=== PATIENT | male | born 1970 | race Caucasian/White ===

== ENCOUNTER 2019-02-12 20:13 | Inpatient (IN) ==
[~2019-02-12 20:13] MED LIST: HEPARIN (PORCINE) 1000 UNIT/ML 10 ML (CATH LAB USE ONLY) ONE; MIDAZOLAM HCL 1 MG/ML 2ML VIAL ONE; NITROGLYCERIN/D5W 100MCG/ML 20ML SYR ONE; NiCARDipine HCL INJ 2.5 MG/ML 10 ML AMP ONE; fentaNYL citrate 100 MCG/2 ML VIAL ONE
[2019-02-12] MEDS ORDERED: SODIUM CHLORIDE 0.9% 1000ML 1,000 ML IV ONE (20:18)
[2019-02-12] MEDS ORDERED: HEPARIN SOD (PORCINE) 1000 UNIT/ML 10 ML VIAL ONE (20:24)
--- NOTE | 2019-02-12 20:34 | XRay Report ---
XR chest 1V portable CLINICAL HISTORY: Chest Pain dyspnea COMPARISON STUDY: No previous studies for comparison. FINDINGS: Mild cardiomegaly. Minimal infiltrative change right base possibly combined with a small ri ght effusion. Lungs otherwise appear clear. Slight prominence of pulmonary vasculature. IMPRESSION: Atelectasis versus minimal infiltrate right base. Pulmonary vascular congestion. The above report was generated using voice recognition software. It may contain grammatical, syntax or spelling errors. Electronically signed by: Ezra Cisse M.D. 02/12/2019 8:33 PM
[2019-02-12 20:38] LABS: Basophils # (auto) 0.03 K/uL (0-0.2); Basophils % (auto) 0.3 %; Eosinophils # (auto) 0.21 K/uL (0-0.5); Eosinophils % (auto) 2.3 %; Hematocrit (blood only) 34.1 % (42-52); Immature Granulocytes # (auto) 0.03 K/uL (0.00-0.02); Immature Granulocytes % (auto) 0.3 %; Lymphocytes % (auto) 27.3 %; Mean Corpuscular Hgb Conc 35.2 g/dL (32-36); Mean Platelet Volume 8.9 fL (7.4-10.4); Monocytes # (auto) 0.64 K/uL (0.11-0.59); Neutrophils # (auto) 5.76 K/uL (1.4-6.5); Neutrophils % (auto) 62.8 %; Platelet Count 220 K/uL (130-400); RDW Coefficient of Variation 13.2 % (11.5-14.5); RDW Standard Deviation 40.9 fL (36.4-46.3); Red Blood Count 4.01 M/uL (4.7-6.1); White Blood Count 9.17 K/uL (4.8-10.8)
[2019-02-12 20:55] LABS: Albumin Level 3.2 gm/dl (3.4-5.0); BUN Creatinine Ratio 13.7 (10-20); Creatinine Clr Calc Pharmacy 92.6 ml/min; Est GFR (African American) 80.4; Est GFR (Non-African American) 69.4
[2019-02-12 21:00] LABS: iSTAT Creatinine 1.1 mg/dl (0.6-1.3); iSTAT Hemoglobin 11.2 g/dl (14.0-18.0); iSTAT Ionized Calcium 1.07 mmol/l (1.12-1.32); iSTAT Potassium 4.1 mEq/L (3.3-5.0)
[2019-02-12 21:05] LABS: Albumin Globulin Ratio 0.8 (0.9-2); Bilirubin,Total 0.3 mg/dl (0.2-1); Creatine Kinase MB 3.8 ng/ml (0.5-3.6); Globulin 4.2 gm/dl (2.5-4.0); Total Protein 7.4 gm/dl (6.4-8.2); Troponin I 4.07 ng/ml (0-0.045)
[2019-02-12] MEDS ORDERED: TICAGRELOR 90 MG TAB PO ONE (21:41)
[2019-02-12] MEDS ORDERED: ONDANSETRON INJ 2 MG/ML 2 ML VIAL IV PRN (21:47)
[2019-02-12] MEDS ORDERED: ACETAMINOPHEN 325 MG TAB PO PRN (21:47)
--- NOTE | 2019-02-12 21:54 | Pre Anesthesia Assessment ---
Date of Service February 12, 2019 Pre Sedation Assessment Vital Signs Pulse Resp BP Pulse Ox 02/12/19 20:20 85 20 165/102 H 99 Cardiovascular RRR, no murmur, no edema Respiratory normal respiratory effort, lungs clear to auscultation Pre-Sedation Airway Assessment Smoking Status: Former smoker Hx Sleep Apnea: No Hx Difficult Intubation: No Short, Thick Neck: No Thyromental Distance: > or= 3.5 Finger Breadths Mallampati Class: III Procedure Planning Contraindications for Sedation: none Current Medications Reviewed: Yes Notes The planned sedation has been discussed with the patient. Informed Consent was obtained. I have identified the patient, determined the appropriateness of sedation and have assessed the patient immediately prior to the procedure. All medicine(s) and interventions are by my order.
--- NOTE | 2019-02-12 21:55 | Post Anesthesia Assessment ---
Date of Service February 12, 2019 Post Sedation Assessment Vital Signs Pulse Resp BP Pulse Ox 02/12/19 20:20 85 20 165/102 H 99 Recovery Score Activity: Moves 4 extremities Respiration: Deep Breath/Cough Circulation: +/-20% PreAnes Value Consciousness: Fully Awake Oxygen Saturation: O2 needed for >90% Discharge Sedation Level of Care: Fast Track Phase II Post Sedation Plan On clinical assessment, the patient appears to have tolerated the sedation without complications. Patient is recovering as anticipated. Patient will continue to be monitored by nursing and may be discharged when sedation discharge criteria are met per below protocol. Upon Completions of procedure and additional 15 minutes continue every 5 minute vital signs and the P.A.R. score; then discharge to a Phase I or Fast Track to Phase II per the following guidelines: * Discharge Patient to appropriate Phase II area if PAR is 8 or greater or return to pre- procedure baseline. The post - procedure orders will be as directed. * If PAR score is less than 8 or not return to pre-procedure baseline then patient will follow Phase I monitoring till PAR is reached for Phase II. The Phase I may be done in procedure room or may call to secure a Phase I area. * If naloxone or flumazenil are used for reversal, hold in Phase I for continued monitoring from when last reversal dose was given for a minimum of 60 minutes or longer pending the nurse and/or physician discretion of patient condition before discharge to Phase II. Please call the Sedation Physician to re-evaluate and complete post-note for discharge to Phase II area. Do NOT discharge from procedure sedation or Phase 1 until post- sedation evaluation note is complete by procedure /sedation MD Sedation Discharge Instructions to be given to the patient at discharge to home.
[2019-02-12] MEDS ORDERED: SODIUM CHLORIDE 0.9% 1000ML 1,000 ML IV SCH (22:00)
--- NOTE | 2019-02-12 22:13 | Cardiac Catheterization ---
Cardiac Cath Procedure Full Procedure Date February 12, 2019 Pre-Procedure Diagnosis Pre-Procedure Diagnosis: Acute Coronary Syndrome AUC Score AUC Score: 8 Post-Procedure Diagnosis Post-Procedure Diagnosis: Severe CAD, Successful PCI and Normal Intracardiac Pressures Procedure(s) Performed Procedure(s) Performed: Coronary Angiography, Left Heart Cath, Drug Eluting Stent and IVUS [facility] Nurse Practitioner Umair Elder MD Granite Fabricator(s) Robbin Estimated Blood Loss Estimated Blood Loss: 15 Medication(s) Medication(s): Fentanyl, Heparin, Lidocaine 1%, Nicardipine, Nitroglycerin and Versed Medication(s): ticagrelor Summary of Findings Indication: Acute coronary syndrome 48-year-old man with no prior cardiac history. Endorsed intermittent chest pain the 2 preceding nights prior to admission. Last chest pain approximately 24 hours ago. Due to chest pain seen by PCP today with EKG showing inferior Q waves and ST elevations. Transferred emergently to [facility] ED with heart alert activated from the field. Upon arrival patient chest pain free, feeling at baseline. Access: 6 Fr right radial artery Catheters: Neely, JR4; EBU 3.5 guide Findings: LM -luminal irregularities LAD -moderate caliber vessel, 90% proximal stenosis, 40% mid segment disease prior to takeoff of second diagonal. Distal luminal irregularities and small vessel as tapers to apex. Circumflex -moderate caliber vessel, luminal irregularities, large left PLB without significant disease RCA -dominant, moderate caliber vessel, diffuse 30 to 40% mid segment disease, 100% earlydistal segment occlusion. No notable collaterals. LVEDP -16 -- PCI -- Antithrombotic therapy: Heparin, ticagrelor Procedure: RCA cannulated with AR-1 guide Distal RCA occlusion probed with environmental field services technician 50 wire. Lesion behaved like organized clot consistent with history of symptoms and MD occurring 24 hours ago. As patient chest pain-free and event occurring approximately 4 hours ago decision made to abort intervention to RCA AR-1 guide removed and left main cannulated with EBU 3.5 guide Cigar Packer And Grader 50 wire passed across proximal lesion into distal vessel Proximal LAD lesion predilated with 2.5 compliant balloon Dilated lesion stented with 2.75 x 18 mm Monroe IVUS used to assess stent expansion, moderate disease pre-and post stent. Moderate soft plaque after stent. Stent well apposed, mildly underexpanded. Stent post-dilated with 3.0 noncompliant balloon IC vasodilators administered for spasm Post procedure BLESSING 3 flow, stent well expanded with minimal residual stenosis and no apparent cardiac complications. Arterial Closure: TR band Summary: 1. Severe 2 vessel coronary artery disease -Late presenting inferior STEMI (24hrs post symptoms), 100% earlydistal RCA occlusion 90% proximal LAD 2. Normal intracardiac filling pressure 3. Successful PCI of proximal LAD with single drug-eluting stent (2.75 x 18 mm Xience Kinjal; postdilated with 3.0 NC). Recommendations: To PCU for continued monitoring Loaded with ticagrelor 180 mg Continue dual-antiplatelet therapy for at least one year As patient now 24hrs out from infarct and asymptomatic on presentation, no indication for intervention to RCA occlusion, continue medical management. Trend troponin until peak Check echo in AM Start beta-trip and YOSEF Continue statin, and ASCVD risk factor modification Consult cardiac Rehab Hemodynamics Rest Ao:: 123/76/98 Final Ao: 122/74/95 LV: 127/16 Recommendations Recommendations: PCI without planned CABG Specimens Specimens: None Radiation Exposure (mGy) 4091 Contrast (mls) 150 Fluids (cc crystalloids) Fluids (cc crystalloids): 51 Drains Drains: none Anesthesia moderate Procedural Complication(s) None Disposition PCU ACC Data: Topstitcher Zigzag Cardiac Status Clinical evaluation leading to the procedure CAD Presenation: STEMI Anginal Classification: CCS IV Heart Failure: No Cardiogenic Shock within 24 Hours: No Cardiac Arrest within 24 Hours: No Imaging Studies Past 6 Months: No Stress Studies Past 6 Months: No Diagnostic Physicians Name: Umair Elder MD Status: Urgent Closure Device Percutaneous Entry Location: Radial Closure Device: Radial Band Recommendations: PCI without planned CABG PCI Indication: PCI for high risk Non-MAIKOL Lesion Segment Name: mid LAD Culprit Artery: No Stenosis Prior to Rx (%): 90 Chronic Total Occlusion: No IVUS: Yes FFR: No Pre-Procedure BLESSING Flow: 3 Previously Treated Lesion: No Lesion Complexity: Non-High/Non-C Lesion Length (mm): 12 Thrombus Present: No Bifurcation Lesion: No Guidewire Across Lesion: Stenosis Post-Procedure (%): 0 Post-Procedure BLESSING Flow: 3 Devices(s) Deployed: Yes Yes Intraprocedure Events Significant Disection: No
[2019-02-12] MEDS ORDERED: PATIENT'S ALLERGY INFO NEEDS ENTERED SCH (22:15)
--- NOTE | 2019-02-12 22:16 | Cardiology Consultation ---
Date of Consultation February 12, 2019 Assessment & Plan (1) ACS (acute coronary syndrome): 2. Late presenting inferior STEMI 3. Severe non-culprit proximal LAD disease 4. Post nephrectomy for renal cancer, mild renal insufficiency 5. Insulin-dependent diabetes Patient here after EKG concerning for inferior STEMI. Found to have occluded earlydistal RCA on angiography. History suggestive of DE occurring approximately 24 hours ago and is asymptomatic risk of any intervention to RCA outweigh potential benefit. Was found to have a high risk proximal LAD lesion which was treated with a single drug-eluting stent without complication. Going forward: Admit to PCU for further monitoring Trend troponin until peak, check echocardiogram in the a.m. Continue anti-platelet therapy with aspirin, ticagrelor IV fluids for single kidney and renal insufficiency Start beta-trip, continue YOSEF inhibitor for likely cardiomyopathy High intensity statin We will continue to follow while in hospital. History of Present Illness Attending Physician: Brian Samaniego MD History of Present Illness Mr. Ghosh is a 48-year-old man with a history of insulin dependent diabetes, dyslipidemia, hypertension, renal cancer status post nephrectomy, prior tobacco use who presented today from his PCPs office in the setting of prior chest pain and EKG showing inferior ST elevations. Reported episodes of chest pain beginning approximately 2 nights ago. Last episode of chest pain occurred yesterday evening around 9 PM approximately 24 hours before arrival. Today he was feeling fine at baseline and went to work as usual. Due to pain the preceding evening went to see his PCP this afternoon where EKG showed inferior ST elevations with inferior Q waves. He was sent emergently to the [facility] ED and a heart alert was activated from the field. Upon arrival here patient was chest pain-free, hemodynamically electrically stable. Repeat EKG again showed inferio r ST elevations with Q waves. Presenting troponin elevated at 4.07 I decision made to proceed with coronary angiography. He was found to have an occluded earlydistal RCA but as asymptomatic for 24 hours decision made to forego RCA intervention. Was also noted to have a 90% proximal LAD which was treated with a single drug-eluting stent (2.75 x 18 Xience). Patient tolerated procedure well and chest pain-free post procedure with TR band in place. Allergies Allergy/AdvReac Type Severity Reaction Status Date / Time No Known Allergies Allergy Unverified 02/12/19 22:08 Home Medications Home Medications Medication Instructions Recorded Confirmed Type atorvastatin 20 mg PO PM 02/12/19 02/12/19 History escitalopram oxalate 20 mg PO DAILY 02/12/19 02/12/19 History fenofibrate nanocrystallized 145 mg PO DAILY 02/12/19 02/12/19 History insulin degludec [Tresiba 160 unit SUBCUT DAILY 02/12/19 02/12/19 History FlexTouch U-100] lisinopril 20 mg PO DAILY 02/12/19 02/12/19 History Patient History Social History Preferred Language: Polish Communication Ability: Effective Beliefs That Will Affect Care: None Current Living Situation: Spouse Other Information That Helps Us Care for You: No Feels Safe at Home: Yes Smoking Status: Former smoker Hx Alcohol Use: No Hx Substance Use: No Review of Systems Review of Systems: Not completed in the setting of emergent situation Physical Exam Physical Exam: General: Comfortable, no acute distress Eyes: Sclerae anicteric, extraocular movements intact HENT: Oropharynx clear mucous membranes moist Lungs: Clear to auscultation bilaterally, no rhonchi or wheezes Cardiac: Regular rate and rhythm, no murmurs, rubs or gallops. Vascular: 2+ radial, DP and PT pulses. Chronic venous stasis changes, telangiectasias Abdomen: Soft, nontender, nondistended, positive bowel sounds. Extremities: Well perfused, no peripheral edema Skin: No rashes or lesions. Neuro: Nonfocal Psych: Alert orient x3, normal affect and mood Results & Data Vital Signs (Past 12 Hours) Vital Signs Pulse Resp BP Pulse Ox 02/12/19 20:20 85 20 165/102 H 99
[2019-02-12] MEDS ORDERED: PROMETHAZINE HCL 12.5 MG in SODIUM CHLORIDE 0.9% 50 ML IV PRN (22:27)
[2019-02-12] MEDS ORDERED: TRAMADOL HCL 50 MG TABLET PO PRN (22:27)
[2019-02-12] MEDS ORDERED: MoRPHine SULFATE 4 MG/ML 1 ML CARP\\VIAL IV PRN (22:27)
--- NOTE | 2019-02-12 22:29 | History & Physical Report ---
Date of Service February 12, 2019 Assessment & Plan (1) ACS (acute coronary syndrome): sp PCI Patient currently comfortable acute/subacute CHF secondary to ischemic cardiomyopathy hypertension, stable hyperlipidemia on statin, fibrate Rx DM 2 insulin requiring, blood sugars currently controlled Recent outpatient hemoglobin A1c from last year was 11.2 as per patient metastatic RCCA L sp surgery, immunotherapy Patient currently in remission. Anemia, new onset Patient unaware of previous diagnosis. Denies overt GI/ bleed symptoms. No previous colonoscopies. past tobacco abuse PCU Management of cardiac issues as per software team leader. Anemia work-up, transfuse PRBC if hemoglobin less than 8 (hx CAD) Basal insulin, ISS BG goal 140-180, carb count coverage, patient due for hemoglobin A1c recheck. DVT prophylaxis Lovenox subcu Full code. History of Present Illness Chief Complaint: Abnormal EKG Primary Care Provider: Bethany Bergman MD History obtained from patient, family, and records. Medical history significant for hypertension, hyperlipidemia, DM 2 insulin requiring, metastatic RCCA L sp surgery, immunotherapy, past tobacco abuse. 2 weeks history of substernal heaviness occurring even at rest, intermittent daily symptoms at home with some shortness of breath. 2 days ago chest heaviness localized to left side of the chest without radiation. Denies cough, fluid retention symptoms. Patient seen at PCPs office this morning with new complaint. Patient chest pain-free upon arrival at PCPs office. EKG showed ST elevation on inferior leads. Patient sent to the ER. Heart alert called. Patient underwent emergent diagnostic cardiac catheterization and intervention. Medical History as above Surgical History : Nephrectomy left, right partial lung resection, vasectomy Family History : Heart disease, diabetes, lung cancer, celiac disease Personal/Social history : Past tobacco abuse, occasional EtOH intake, retired from factory work Allergies Allergy/AdvReac Type Severity Reaction Status Date / Time No Known Allergies Allergy Unverified 02/12/19 22:08 Home Medications Home Medications Medication Instructions Recorded Confirmed Type atorvastatin 20 mg PO PM 02/12/19 02/12/19 History escitalopram oxalate 20 mg PO DAILY 02/12/19 02/12/19 History fenofibrate nanocrystallized 145 mg PO DAILY 02/12/19 02/12/19 History insulin degludec [Tresiba 160 unit SUBCUT DAILY 02/12/19 02/12/19 History FlexTouch U-100] lisinopril 20 mg PO DAILY 02/12/19 02/12/19 History Past Med/Surg History Social History Preferred Language: Greek Communication Ability: Effective Beliefs That Will Affect Care: None Current Living Situation: Spouse Other Information That Helps Us Care for You: No Feels Safe at Home: Yes Smoking Status: Former smoker Hx Alcohol Use: No Hx Substance Use: No Review of Systems Review of Systems: As per HPI, all 10 systems reviewed, all other ROS negative Physical Exam Physical Exam: GENERAL: Comfortable, obese, slightly anxious, looks older than stated age, no respiratory distress SKIN: Pallor, warm HEENT: Partial alopecia, pale palpebral conjunctivae, flushed face, no ptosis, dry buccal mucosa NECK : Supple, short neck, no tenderness CHEST : CTA, no tenderness HEART : RRR, no obvious murmurs ABDOMEN: Some distention, nontender EXTREMITIES : No LE swelling/tenderness, no other conspicuous deformities noted NEUROLOGIC : Coherent, no facial asymmetry, no other gross focality Results & Data Vital Signs (Past 12 Hours) Vital Signs Temp Pulse Pulse Resp BP BP Pulse Ox 02/12/19 22:00 36.7 C 81 18 144/89 H 96 02/12/19 20:20 85 20 165/102 H 99 Laboratory Results Laboratory Results WBC 9.17 K/uL (4.8-10.8) 02/12/19 20: RBC 4.01 M/uL (4.7-6.1) L 02/12/19 20:27 Hgb 12.0 g/dL (14.0-18.0) L 02/12/19 20:27 POC Hgb 11.2 g/dl (14.0-18.0) L 02/12/19 20:28 Hct 34.1 % (42-52) L 02/12/19 20:27 POC Hct 33 % (42-52) L 02/12/19 20:28 MCV 85.0 fL (80-100) 02/12/19 20:27 MCH 29.9 pg (25-34) 02/12/19 20:27 MCHC 35.2 g/dL (32-36) 02/12/19 20:27 RDW Std Deviation 40.9 fL (36.4-46.3) 02/12/19 20:27 RDW Coeff of Jami 13.2 % (11.5-14.5) 02/12/19 20: Plt Count 220 K/uL (130-400) 02/12/19 20: MPV 8.9 fL (7.4-10.4) 02/12/19 20:27 Immature Gran % (Auto) 0.3 % 02/12/19 20:27 Neut % (Auto) 62.8 % 02/12/19 20: Lymph % (Auto) 27.3 % 02/12/19 20: [place] % (Auto) 7.0 % 02/12/19 20: Eos % (Auto) 2.3 % 02/12/19 20: Baso % (Auto) 0.3 % 02/12/19 20: Immature Gran # (Auto) 0.03 K/uL (0.00-0.02) H 02/12/19 20: Neut # (Auto) 5.76 K/uL (1.4-6.5) 02/12/19 20: Lymph # (Auto) 2.50 K/uL (1.2-3.4) 02/12/19 20: [place] # (Auto) 0.64 K/uL (0.11-0.59) H 02/12/19 20: Eos # (Auto) 0.21 K/uL (0-0.5) 02/12/19 20: Baso # (Auto) 0.03 K/uL (0-0.2) 02/12/19 20:27 Activ Coag Time Kaolin 241 SECONDS (94-140) H 02/12/19 20:09 POC Sodium 137 mEq/L (135-144) 02/12/19 20:28 Sodium 138 mmol/L (136-145) 02/12/19 20:28 POC Potassium 4.1 mEq/L (3.3-5.0) 02/12/19 20:28 Potassium 4.0 mmol/L (3.5-5.1) 02/12/19 20:28 POC Chloride 102 mEq/L (101-112) 02/12/19 20:28 Chloride 105 mmol/L (98-107) 02/12/19 20:28 Carbon Dioxide 28 mmol/L (21-32) 02/12/19 20:28 POC Total CO2 24 mEq/l (24-31) 02/12/19 20: Anion Gap 5.0 (3-11) 02/12/19 20: POC Anion Gap 16.0 mmol/L (16-25) 02/12/19 20:28 POC BUN 17 mg/dl (7-18) 02/12/19 20: BUN 17 mg/dl (7-18) 02/12/19 20: Creatinine 1.21 mg/dl (0.6-1.4) 02/12/19 20: POC Creatinine 1.1 mg/dl (0.6-1.3) 02/12/19 20: Est Cr Clr Drug Dosing 92.6 ml/min 02/12/19 20: Est GFR ( Amer) 80.4 02/12/19 20: Est GFR (Non-Af Amer) 69.4 02/12/19 20: BUN/Creatinine Ratio 13.7 (10-20) 02/12/19 20: Glucose 141 mg/dl (70-99) H 02/12/19 20: POC Glucose (other) 144 mg/dl (70-99) H 02/12/19 20: Calcium 9.0 mg/dl (8.5-10.1) 02/12/19 20: POC Ioniz Calcium Reta 1.07 mmol/l (1.12-1.32) L 02/12/19 20: Total Bilirubin 0.3 mg/dl (0.2-1) 02/12/19 20: AST 28 U/L (15-37) 02/12/19 20: ALT 25 U/L (12-78) 02/12/19 20: Alkaline Phosphatase 82 U/L (45-117) 02/12/19 20: Total Creatine Kinase 205 U/L (39-308) 02/12/19 20: CK-MB (CK-2) 3.8 ng/ml (0.5-3.6) H 02/12/19 20:28 CK/CKMB % Calc 1.9 (0-3.0) 02/12/19 20:28 POC Troponin I 3.81 ng/ml (0-0.045) H 02/12/19 20: Troponin I 4.070 ng/ml (0-0.045) H* 02/12/19 20:28 Total Protein 7.4 gm/dl (6.4-8.2) 02/12/19 20:28 Albumin 3.2 gm/dl (3.4-5.0) L 02/12/19 20:28 Globulin 4.2 gm/dl (2.5-4.0) H 02/12/19 20:28 Albumin/Globulin Ratio 0.8 (0.9-2) L 02/12/19 20:28 Lipase 191 U/L (73-393) 02/12/19 20:28 Diagnostic Findings Chest x-ray showed atelectasis versus minimal infiltrate right base. Pulmonary vascular congestion. EKG as per my interpretation ([facility] outpatient): Rate 80, NSR, inferior infarct, ST elevation inferior leads
[2019-02-12 22:32] LABS: Partial Thromboplastin Time 26.8 Seconds (21.0-31.0)
[2019-02-12] MEDS ORDERED: DEXTROSE 50% 50 ML SYRINGE IV PRN (23:03)
[2019-02-12] MEDS ORDERED: GLUCAGON FOR INJ 1 MG VIAL SQ PRN (23:03)
[2019-02-12] MEDS ORDERED: GLUCOSE 40% GEL 15 GM TUBE PO PRN (23:03)
[2019-02-12] MEDS ORDERED: CARBOHYDRATES FOR HYPOGLYCEMIA PO PRN (23:03)
[2019-02-12] MEDS ORDERED: GLUCOSE 10 TABS/TUBE PO PRN (23:03)
[2019-02-12] MEDS ORDERED: INSULIN ASPART 100 UNITS/ML 3 ML PEN SC SCH (23:05)
[2019-02-12] MEDS ORDERED: INSULIN GLARGINE SOLOSTAR 100 UNITS/ML 3 ML PEN SC STA (23:07)
[2019-02-13] MEDS ORDERED: ACETAMINOPHEN 325 MG TAB PO PRN (00:19)
[2019-02-13] MEDS ORDERED: NITROGLYCERIN SL 0.4 MG/TAB TAB SL PRN (00:19)
[2019-02-13 04:07] LABS: Appearance Urine Clear (Clear); Bacteria Urine Automated Negative (Negative); Bilirubin Urine Negative (Negative); Blood Urine Trace (Negative); Color Urine Yellow; Epithelial Cell Urine Auto 0-5 /lpf (0-5); Glucose Urine UA Negative (Negative); Ketones Urine Negative (Negative); Leukocyte Esterase Urine Negative (Negative); Nitrite Urine Negative (Negative); Protein Urine Negative (Negative); RBC Urine Automated 0-4 /hpf (0-4); Specific Gravity Urine 1.019 (1.000-1.030); Urobilinogen Urine Negative (Negative); WBC Urine Automated 0 /hpf (0-5); pH Urine 7.5 (4.5-7.5)
[2019-02-13 04:28] LABS: Basophils # (auto) 0.01 K/uL (0-0.2); Basophils % (auto) 0.1 %; Eosinophils % (auto) 2.6 %; Hematocrit (blood only) 34.2 % (42-52); Hemoglobin 11.7 g/dL (14.0-18.0); Immature Granulocytes # (auto) 0.01 K/uL (0.00-0.02); Immature Granulocytes % (auto) 0.1 %; Lymphocytes # (auto) 1.88 K/uL (1.2-3.4); Lymphocytes % (auto) 24.2 %; Mean Corpuscular Hgb Conc 34.2 g/dL (32-36); Mean Corpuscular Volume 84.9 fL (80-100); Mean Platelet Volume 8.7 fL (7.4-10.4); Monocytes # (auto) 0.47 K/uL (0.11-0.59); Platelet Count 197 K/uL (130-400); RDW Coefficient of Variation 13.2 % (11.5-14.5); RDW Standard Deviation 40.3 fL (36.4-46.3); Red Blood Count 4.03 M/uL (4.7-6.1); Reticulocyte % 1.2 % (0.5-2.0); Reticulocytes # 0.05 10^6/uL (0.02-0.10); White Blood Count 7.77 K/uL (4.8-10.8)
[2019-02-13 04:41] LABS: Prothrombin Time 10.5 Seconds (9.0-12.0)
[2019-02-13 04:48] LABS: BUN Creatinine Ratio 11.4 (10-20); Calcium 8.4 mg/dl (8.5-10.1); Creatinine Clr Calc Pharmacy 89.6 ml/min; Est GFR (African American) 77.3; Est GFR (Non-African American) 66.7; Potassium 4.1 mmol/L (3.5-5.1)
[2019-02-13 05:01] LABS: Ferritin 371.4 ng/ml (8-388); Troponin I 4.17 ng/ml (0-0.045)
[2019-02-13] MEDS ORDERED: INSULIN GLARGINE SOLOSTAR 100 UNITS/ML 3 ML PEN SC SCH ×2 (05:45→09:00)
[2019-02-13] MEDS: INSULIN ASPART 100 UNITS/ML 3 ML PEN SC SCH ×4 (06:05→16:49)
[2019-02-13 06:19] LABS: Estimated Average Glucose 295 mg/dl; Hemoglobin A1C 11.9 % (4.5-5.6)
[2019-02-13] MEDS ORDERED: PERFLUTREN LIPID MICROSPHERE (DEFINITY) IV ONE (06:59)
[2019-02-13 08:24] LABS: Folate (Folic Acid) 21.05 ng/ml (>5.38)
[2019-02-13] MEDS ORDERED: TICAGRELOR 90 MG TAB PO SCH (09:00)
[2019-02-13] MEDS ORDERED: FENOFIBRATE NANOCRYSTALLIZED 145 MG TABLET PO SCH (09:00)
[2019-02-13] MEDS ORDERED: ASPIRIN 81 MG ECTAB PO SCH (09:00)
[2019-02-13] MEDS ORDERED: ESCITALOPRAM OXALATE 20 MG TAB PO SCH (09:00)
[2019-02-13] MEDS ORDERED: METOPROLOL TARTRATE 25 MG TAB PO SCH (09:00)
[2019-02-13] MEDS ORDERED: LISINOPRIL 5 MG TAB PO SCH (09:00)
[2019-02-13] MEDS ORDERED: ATORVASTATIN 40 MG TAB PO SCH (09:00)
[2019-02-13] MEDS ORDERED: ENOXAPARIN INJ 40 MG/0.4 ML SYR SQ SCH (09:00)
--- NOTE | 2019-02-13 14:55 | Cardiology Progress Note ---
Date of Service February 13, 2019 Assessment & Plan (1) ACS (acute coronary syndrome): 2. Late presenting inferior STEMI 3. Severe non-culprit proximal LAD disease 4. Ischemic cardiomyopathy (EF 40-45%, inferior/septal hypokinesis to akinesis. 5. Poorly controlled DM 6. Post nephrectomy for renal cancer, mild renal insufficiency Patient with no chest pain since admission. Hemodynamically and electrically stable. No access site complications. Post procedure labs stable. From a cardiac standpoint OK for discharge this afternoon. -- continue DAPT with ASA/Ticagrelor -- transition to toprol XL 50mg daily on discharge -- can increase lisinopril back to 20mg daily -- continue high-intensity statin -- Follow up with me in 2 weeks, will discuss cardiac rehab at that time. -- Off work for next week. Subjective Feeling well. No chest pain. No shortness of breath. Telemetry reviewed -- no events. Review of Systems Review of Systems: All systems reviewed & are unremarkable except as noted in HPI & below Physical Exam Constitutional: WD/WN, vitals as above Eyes: + anicteric sclerae Respiratory: normal respiratory effort, lungs clear to auscultation Cardiovascular: RRR, no murmur, no edema Heart Sounds: no murmur Vessels: no JVD Gastrointestinal (Abdomen): normal bowel sounds, soft, nontender, no hepatosplenomegaly Skin: no rashes, warm and dry Neurologic: moves all extremities Psychiatric: A+Ox3, euthymic affect Results & Data Vital Signs (Past 12 Hours) Vital Signs Temp Pulse Resp BP Pulse Ox 02/13/19 11:39 36.6 C 71 16 124/80 96 02/13/19 07:53 36.6 C 76 16 132/86 95 02/13/19 03:08 83 18 123/80 95
--- NOTE | 2019-02-13 16:55 | Hospitalist Progress Note ---
Date of Service February 13, 2019 Assessment & Plan (1) ACS (acute coronary syndrome): Acute Coronary Syndrome Inferior STEMI Severe 2 vessel coronary artery disease Ischemic Cardiomyopathy:EF 40-45%, inferior/septal hypokinesis to akinesis S/P PCI proximal LAD with single drug-eluting stent Cath results as below Appreciate Cardiology recommendations Continue Aspirin, Lipitor, Metoprolol, Brillinta, Lisinopril Needs FU with Cardiology upon discharge Hypertension stable Continue current medications Hyperlipidemia Continue statin, fibrate DM II : A1C: 11.9 Had issues with Tresiba due to Insurance issues and was restarted recently Continue Insulin therapy Monitor BGs Metastatic RCC L S/P surgery, immunotherapy Patient currently in remission. Past tobacco abuse DVT Px: Lovenox SQ Code Status Full code Disposition: Plan to discharge home today Cardiac Cath: Summary: 1. Severe 2 vessel coronary artery disease -Late presenting inferior STEMI (24hrs post symptoms), 100% earlydistal RCA occlusion 90% proximal LAD 2. Normal intracardiac filling pressure 3. Successful PCI of proximal LAD with single drug-eluting stent (2.75 x 18 mm Xience Kinjal; postdilated with 3.0 NC). Recommendations: To PCU for continued monitoring Loaded with ticagrelor 180 mg Continue dual-antiplatelet therapy for at least one year As patient now 24hrs out from infarct and asymptomatic on presentation, no indication for intervention to RCA occlusion, continue medical management. Trend troponin until peak Check echo in AM Start beta-trip and YOSEF Continue statin, and ASCVD risk factor modification Consult cardiac Rehab Subjective Patient is seen and examined at bedside Doing well today Denies chest pain, SOB, dizziness, nausea Offers no complaints Plan to discharge home today Review of Systems Review of Systems: All systems reviewed & are unremarkable except as noted in HPI & below Physical Exam Physical Exam: Physical Exam: Vitals signs as noted above General Appearance:Moderately built and nourished, no apparent distress Head: normocephalic, Atraumatic Eyes: normal inspection, EOMI Neck: supple, Trachea midline Respiratory/Chest: Normal breath sounds, CTA Cardiovascular: S1, S2, No murmur Abdomen/GI:Soft, Non tender, Bowel sounds present Extremities/Musculoskelatal:normal inspection, no edema Neurologic/Psych:AAOX3, grossly no focal neurological deficits Skin: normal color, warm Results & Data Vital Signs (Past 12 Hours) Vital Signs Temp Pulse Resp BP Pulse Ox 04/26/19 16:05 36.7 C 76 18 115/78 99 02/13/19 11:39 36.6 C 71 16 124/80 96 02/13/19 07:53 36.6 C 76 16 132/86 95 Laboratory Results Short CBC 02/12/19 02/13/19 Range/Units 20:27 03:59 WBC 9.17 7.77 (4.8-10.8) K/uL Hgb 12.0 L 11.7 L (14.0-18.0) g/dL Hct 34.1 L 34.2 L (42-52) % Plt Count 220 197 (130-400) K/uL BMP 02/12/19 02/13/19 20:28 03:59 Sodium 138 138 Potassium 4.0 4.1 Chloride 105 106 Carbon Dioxide 28 30 BUN 17 14 Creatinine 1.21 1.25 Glucose 141 H 207 H Calcium 9.0 8.4 L Cardiac Enzymes 02/12/19 02/12/19 02/13/19 Range/Units 20:27 20:28 03:59 Total Creatine Kinase Cancelled 205 CK-MB (CK-2) Cancelled 3.8 H Troponin I 4.070 H* 4.170 H* (0-0.045) ng/ml 02/13/19 Range/Units 09:45 Total Creatine Kinase CK-MB (CK-2) Troponin I 4.250 H* (0-0.045) ng/ml Liver Function 02/12/19 02/13/19 Range/Units 20:28 03:59 Total Bilirubin 0.3 (0.2-1) mg/dl AST 28 (15-37) U/L ALT 25 (12-78) U/L Alkaline Phosphatase 82 (45-117) U/L Albumin 3.2 L 2.8 L (3.4-5.0) gm/dl Urine 02/13/19 Range/Units 03:46 Urine Color Yellow Urine Appearance Clear (Clear) Urine pH 7.5 (4.5-7.5) Ur Specific [place] 1.019 (1.000-1.030) Urine Protein Negative (Negative) Urine Glucose (UA) Negative (Negative)
--- NOTE | 2019-02-13 17:04 | Discharge Summary ---
Date of Service February 13, 2019 Admission HPI Per Admitting Provider History obtained from patient, family, and records. Medical history significant for hypertension, hyperlipidemia, DM 2 insulin requiring, metastatic RCCA L sp surgery, immunotherapy, past tobacco abuse. 2 weeks history of substernal heaviness occurring even at rest, intermittent daily symptoms at home with some shortness of breath. 2 days ago chest heaviness localized to left side of the chest without radiation. Denies cough, fluid retention symptoms. Patient seen at PCPs office this morning with new complaint. Patient chest pain-free upon arrival at PCPs office. EKG showed ST elevation on inferior leads. Patient sent to the ER. Heart alert called. Patient underwent emergent diagnostic cardiac catheterization and intervention. Medical History as above Surgical History : Nephrectomy left, right partial lung resection, vasectomy Family History : Heart disease, diabetes, lung cancer, celiac disease Personal/Social history : Past tobacco abuse, occasional EtOH intake, retired from factory work Admission Exam Per Admitting Provider GENERAL: Comfortable, obese, slightly anxious, looks older than stated age, no respiratory distress SKIN: Pallor, warm HEENT: Partial alopecia, pale palpebral conjunctivae, flushed face, no ptosis, dry buccal mucosa NECK : Supple, short neck, no tenderness CHEST : CTA, no tenderness HEART : RRR, no obvious murmurs ABDOMEN: Some distention, nontender EXTREMITIES : No LE swelling/tenderness, no other conspicuous deformities noted NEUROLOGIC : Coherent, no facial asymmetry, no other gross focality Principal Diagnosis Discharge Information Discharge Diagnosis Acute Coronary Syndrome-- STEMI Discharge Goals Decrease discomfort,Improve function,Improve disease control Discharge Activity Limitations Per instructions/follow-up Discharge Data Allergies Allergy/AdvReac Type Severity Reaction Status Date / Time No Known Allergies Allergy Unverified 02/12/19 22:08 Consultations 02/12/19 20:41 Consult Cardiology Stat ED Decision to Admit Stat 02/12/19 21:50 Consult Cardiac Rehabilitation Routine Procedures Performed Operation Date: 02/12/19 20:15 Actual Procedures p Aspiration/PCI w/HIEN for Stemi - Darrell Elder MD s IVUS Coronary Single Vessel - Darrell Elder MD s Cineradiography w/Routine Exam - Darrell Elder MD s Cath, Left with Cors and Vent - Darrell Elder MD CXR: Atelectasis versus minimal infiltrate right base. Pulmonary vascular congestion. Ordered Studies 02/12/19 20:15 CL Cath Imgs for PACS use only Stat 02/12/19 22:05 CL IVUS Coronary Single Vessel Routine Hospital Course (1) ACS (acute coronary syndrome): Acute Coronary Syndrome Inferior STEMI Severe 2 vessel coronary artery disease Ischemic Cardiomyopathy:EF 40-45%, inferior/septal hypokinesis to akinesis S/P PCI proximal LAD with single drug-eluting stent Cath results as below Appreciate Cardiology recommendations Continue Aspirin, Lipitor, Metoprolol, Brillinta, Lisinopril Needs FU with Cardiology upon discharge Hypertension stable Continue current medications Hyperlipidemia Continue statin, fibrate DM II : A1C: 11.9 Had issues with Tresiba due to Insurance issues and was restarted recently Continue Insulin therapy Monitor BGs Metastatic RCC L S/P surgery, immunotherapy Patient currently in remission. Past tobacco abuse DVT Px: Lovenox SQ Code Status Full code Disposition: Plan to discharge home today Cardiac Cath: Summary: 1. Severe 2 vessel coronary artery disease -Late presenting inferior STEMI (24hrs post symptoms), 100% earlydistal RCA occlusion 90% proximal LAD 2. Normal intracardiac filling pressure 3. Successful PCI of proximal LAD with single drug-eluting stent (2.75 x 18 mm Xience Kinjal; postdilated with 3.0 NC). Recommendations: To PCU for continued monitoring Loaded with ticagrelor 180 mg Continue dual-antiplatelet therapy for at least one year As patient now 24hrs out from infarct and asymptomatic on presentation, no indication for intervention to RCA occlusion, continue medical management. Trend troponin until peak Check echo in AM Start beta-trip and YOSEF Continue statin, and ASCVD risk factor modification Consult cardiac Rehab Total Time Total Time Spent Total Time Spent (In Minutes): 38 minutes Total Time Includes: Examination of the Patient, Discharge Planning, Medication Reconciliation, Communication With Other Providers and Other Discharge Plan Discharge Items Patient Disposition: Home - Self-Care Reason For Visit: ACS Discharge Diagnosis: Acute Coronary Syndrome-- STEMI Discharge Goals: Decrease discomfort, Improve disease control and Improve fu nction Activity: Per 'Additional Instructions' section Lifting: Wait until after follow-up appointment Exercise/Sports: Gradually increase as tolerated and Wait until after follow-up appointment Non-emergency contact: Primary Care Provider and Trade Manager Call non-emergency contact if: you have any medication questions, your symptoms worsen, your pain is not controlled, your pain is worsening, your pain is unusual for you, your pain is concerning for you, you have a fever, your wound has increased redness, your wound has increased drainage and your wound pain has increased Follow-up/Referrals: Bethany Unger MD [Primary Care Provider] - Diet: Carb Consistent or DM2 and Heart Healthy Addtl Provider Instructions: Follow up with your PCP on February 19, 2019 at 11:05 AM Follow up with your Trade Manager Dr.Christophe Jero Elder in 2 weeks Seek immediate medical attention if your symptoms reoccur or worsen ACTIVITY RECOMMENDATIONS: It is common to feel weak and fatigue for a few days. * Do not drive or operate any motorized equipment for the next three days. * Limit stair usage (2 or 3 trips a day only) for the next three days. * Do not lift anything heavier than 10 pounds for the next three days. * Do not engage in vigorous exercise or any sports for the next five days. * You may shower the day after your procedure, but do not immerse the area for three days. Cleanse the site gently with soap and water. SPECIAL CARE INSTRUCTIONS: * You may replace the pressure dressing or band-aid the morning after the procedure. * After your procedure, it is normal to have a small bruise or small lump at the site. Examine your site daily for any change in the bruise or lump, redness, swelling, drainage or numbness. Notify your doctor if any change. BLEEDING: * If there is a small amount of bleeding at the site, lie down and apply firm pressure with a clean cloth for ten minutes. When the bleeding stops, lie quietly keeping the procedure limb straight for six hours. Notify your doctor as soon as possible. * If the bleeding does not stop after ten minutes or if there is a large amount of bleeding or spurting, call 911 immediately. Continue to lie down and hold firm pressure until help arrives. SKIN IRRITATION: * You may experience some redness and/or swelling in the area where radiation was administered. If any skin irritation occurs, please contact your family physician. FOLLOW UP VISIT: Keep any scheduled doctor appointments. Home Care: * Take your medications exactly as directed. Don't skip doses. * Remember that recovery after a heart attack takes time. Plan to rest for at lease 4-8 weeks while you recover. Then return to normal activity when your doctor says it's okay. * Ask your doctor about joining a heart rehabilitation program. * Tell your doctor if you are feeling depressed. Feelings of sadness are common after a heart attack, but it is important that you speak to someone if you are feeling overwhelmed by these feelings. * If you are having chest pain, call 911 for an ambulance. Do NOT drive yourself to the hospital. * Ask your family members to learn CPR. * Learn to take your own blood pressure and pulse. Keep a record of your results. Ask your doctor when you should seek emergency medical attention. He or she will tell you which blood pressure reading is dangerous. Lifestyle Changes: * Maintain a healthy weight. Get help to lose any extra pounds. * Cut back on salt. * Limit canned, dried, packaged, and fast foods. * Don't add salt to your food. * Season foods with herbs instead of salt when you cook. * Break the smoking habit. Enroll in a stop-smoking program to improve your chances of success. * Limit fatty foods. * Ask your doctor about having your lipid levels checked regularly. * Build up your activity according to your doctor's recommendation. * Ask your doctor when it's okay to resume sexual activity. * Tell your doctor about any erectile dysfunction (ED) medication you are taking. Some ED medications are not safe if you take certain heart medications. * Try to manage stress. Follow Up: It is important for you to keep your follow up appointments with your medical provider. Prescriptions: New Brilinta 90 mg Tablet 90 mg PO BID 30 Days Qty: 60 RF: 1 atorvastatin 40 mg Tablet 80 mg PO QAM 30 Days Qty: 60 RF: 1 aspirin [Ecotrin Low Strength] 81 mg Tablet,Delayed Release (Dr/Ec) 81 mg PO QAM 30 Days Qty: 30 RF: 3 metoprolol succinate [Toprol XL] 50 mg tablet extended release 24 hr 50 mg PO DAILY Qty: 30 RF: 1 Continued lisinopril 20 mg Tablet 20 mg PO DAILY RF: 0 escitalopram oxalate 20 mg Tablet 20 mg PO DAILY RF: 0 Tresiba FlexTouch U-100 100 unit/mL (3 mL) Insulin Pen 160 unit SUBCUT DAILY RF: 0 fenofibrate nanocrystallized 145 mg Tablet 145 mg PO DAILY RF: 0 Discontinued atorvastatin 20 mg Tablet 20 mg PO PM RF: 0 Stand-Alone Forms: Call Back Authorization, [facility], Work/School Release (Inpt) Flor/Other Patient Handouts: Ticagrelor Oral tablet, Metoprolol Succinate Oral tablet extended-release Discharge Orders: Discharge Order (Routine); Ordered 02/13/19 Ordered By: Jere Marshall Admission Data Admit Date/Time: 02/12/19 20:37 Attending Provider: Jere Marshall Admit Provider: Darrell Elder Primary Care Provider: Bethany Unger Other Providers: Darrell Elder ; Geraldo Diana Service: Telemetry Other Interventions: Discharge Summary Assessment (RN) Last Done: 02/13/19 17:19 Pending Studies at Discharge: No DC Date/Time DO NOT enter until pt leaves facility: 02/13/19 18:08
--- NOTE | 2019-02-15 20:05 | Emergency Department Note ---
History of Present Illness General Chief complaint: Chest Pain Stated complaint: heart alert Source: patient, family, EMS, RN notes reviewed and old records reviewed Mode of arrival: EMS Limitations: no limitations History of Present Illness Provider complaint: chest pain Onset (ago): day(s) 2 Location: chest Radiation: back, neck and extremity Severity: moderate Pain Consistency: + now resolved Maximum Pain Intensity: 0 Current Pain Intensity: 5 Quality: + aching Relieved By: + rest Exacerbated By: + movement Associated symptoms: + shortness of breath Treatments prior to arrival: aspirin This is a 48-year-old male who presents emergency department after being sent in by his primary care physician's office over concerns that the patient is having a STEMI. The patient has been having chest pain for the past 2 days although he is currently pain-free. Based on his EKG as well as his story heart alert was immediately initiated. Patient has no heart history however he had does have a history of renal carcinoma as well as a lobectomy. Patient was given 324 mg of aspirin prior to his arrival at the emergency department. Home Medications Home Medications Medication Instructions Recorded Confirmed Type Tresiba FlexTouch U-100 160 unit SUBCUT DAILY 02/12/19 02/12/19 History escitalopram oxalate 20 mg PO DAILY 02/12/19 02/12/19 History fenofibrate nanocrystallized 145 mg PO DAILY 02/12/19 02/12/19 History lisinopril 20 mg PO DAILY 02/12/19 02/12/19 History aspirin [Ecotrin Low Strength] 81 mg PO QAM 30 Days #30 tab 02/13/19 Rx atorvastatin 80 mg PO QAM 30 Days #60 tab 02/13/19 Rx metoprolol succinate [Toprol XL] 50 mg PO DAILY #30 tab 02/13/19 Rx ticagrelor [Brilinta] 90 mg PO BID 30 Days #60 tab 02/13/19 Rx Allergies Allergy/AdvReac Type Severity Reaction Status Date / Time No Known Allergies Allergy Unverified 02/12/19 22:08 Past Med/Surg History Social History Preferred Language: Bangladeshi Communication Ability: Effective Beliefs That Will Affect Care: None Current Living Situation: Spouse Other Information That Helps Us Care for You: No Feels Safe at Home: Yes Smoking Status: Former smoker Hx Alcohol Use: No Hx Substance Use: No Review of Systems A total of 10 systems reviewed and were otherwise negative Physical Exam Vital Signs Vital Signs - 24 hr 02/12/19 20:20 Sepsis Recent Fever Within 48 Hours No Sepsis Action Taken by Nursing No Action Required Pulse Rate 85 Pulse Rhythm Irregular Pulse Strength Normal Respiratory Rate 20 Respiratory Effort / Characteristics Non-Labored Respiratory Depth Normal Respiratory Pattern Regular Blood Pressure 165/102 H Blood Pressure Mean 123 Blood Pressure Position Lying Pulse Oximetry 99 Oxygen Delivery Method Room Air GENERAL: Patient is a healthy-appearing well-nourished male HEAD: Normocephalic atraumatic EYES: Ocular movements intact pupils equal and react to light OROPHARYNX mucous membranes are moist no exudates present no erythema or edema present NECK: Supple no nuchal rigidity CHEST: Good equal expansion LUNGS: Clear and equal to auscultation CARDIAC: Normal S1 and S2 ABDOMEN: Soft nontender no guarding BACK: No CVA tenderness EXTREMITIES: No pain upon palpation normal muscle strength in all groups no clubbing cyanosis or edema NEURO: Patient is following commands is answering questions appropriately. Alert and oriented x3 Cranial Nerves 2-12 grossly intact Course Administered Medications Discontinued Medications Aspirin (Ecotrin Ectab) 81 mg PO QAM [facility] Stop: 03/15/19 08:59 Last Admin: 02/13/19 08:14 Dose: 81 mg Documented by: [id number] Atorvastatin Calcium (Lipitor) 80 mg PO QAM [facility] Stop: 03/15/19 08:59 Last Admin: 02/13/19 08:14 Dose: 80 mg Documented by: [id number] Enoxaparin Sodium (Lovenox) 40 mg SQ QAM [facility] Stop: 03/15/19 08:59 Last Admin: 02/13/19 08:13 Dose: 40 mg Documented by: [id number] Escitalopram Oxalate (Lexapro) 20 mg PO DAILY [facility] Stop: 03/15/19 08:59 Last Admin: 02/13/19 08:14 Dose: 20 mg Documented by: [id number] Fenofibrate (Tricor) 145 mg PO DAILY [facility] Stop: 03/15/19 08:59 Last Admin: 02/13/19 08:14 Dose: 145 mg Documented by: [id number] Fentanyl Citrate (Fentanyl Citrate) Confirm Administered Dose 100 mcg .ROUTE .STK-MED ONE Stop: 02/12/19 20:12 Last Admin: 02/12/19 21:32 Dose: 100 mcg Documented by: [id number] Heparin Sodium (Porcine) (Heparin Iv Bolus (Data Sme Use Only)) Confirm Administered Dose 10,000 units .ROUTE .STK-MED ONE Stop: 02/12/19 20:12 Last Admin: 02/12/19 21:32 Dose: 8,000 units Documented by: [id number] Heparin Sodium (Porcine) (Heparin Iv Bolus) Confirm Administered Dose 10,000 units .ROUTE .STK-MED ONE Stop: 02/12/19 20:25 Last Admin: 02/12/19 21:33 Dose: Not Given Documented by: [id number] Heparin Sodium/Sodium Chloride (Heparin/Nss 1000 Unit/500ml Flush Bag) Confirm Administered Dose 3,000 units IV .STK-MED ONE Stop: 02/12/19 20:12 Last Admin: 02/12/19 21:33 Dose: 3,000 units Documented by: [id number] Sodium Chloride (Nss 1000ml) 1,000 mls @ 999 mls/hr IV .Q1H1M ONE Stop: 02/12/19 21:18 Last Infusion: 02/12/19 22:11 Dose: 0 mls/hr Documented by: [id number] Admin: 02/12/19 20:25 Dose: 999 mls/hr Documented by: [id number] Sodium Chloride (Nss 1000ml) 1,000 mls @ 100 mls/hr IV .Q10H LGEN Stop: 02/13/19 02:59 Last Infusion: 02/13/19 03:26 Dose: 0 mls/hr Documented by: [id number] Admin: 02/12/19 22:11 Dose: 100 mls/hr Documented by: [id number] Insulin Aspart (Novolog Flexpen) 0 units SC ACHS [facility] Stop: 03/14/19 23:04 Last Admin: 02/13/19 00:18 Dose: Not Given Documented by: [id number] Cosigned by: [id number] Insulin Aspart (Novolog Flexpen) 0 units SC ACHS GLEN Stop: 03/15/19 05:44 Last Admin: 02/13/19 16:49 Dose: Not Given Documented by: [id number] Cosigned by: [id number] Admin: 02/13/19 11:53 Dose: 2 units Documented by: [id number] Cosigned by: [id number] Admin: 02/13/19 08:15 Dose: 2 units Documented by: [id number] Cosigned by: [id number] Admin: 02/13/19 06:05 Dose: 1 units Documented by: [id number] Cosigned by: [id number] Insulin Glargine (Lantus Solostar Pen) 10 units SC NOW STA Stop: 02/12/19 23:08 Last Admin: 02/13/19 00:18 Dose: 10 units Documented by: [id number] Cosigned by: [id number] Insulin Glargine (Lantus Solostar Pen) 15 units SC BID [facility] Stop: 03/15/19 05:44 Last Admin: 02/13/19 06:06 Dose: 15 units Documented by: [id number] Cosigned by: [id number] Lisinopril (Zestril) 5 mg PO QAM [facility] Stop: 03/15/19 08:59 Last Admin: 02/13/19 08:14 Dose: 5 mg Documented by: [id number] Metoprolol Tartrate (Lopressor) 25 mg PO BID [facility] Stop: 03/15/19 08:59 Last Admin: 02/13/19 08:14 Dose: 25 mg Documented by: [id number] Midazolam HCl (Versed) Confirm Administered Dose 2 mg .ROUTE .STK-MED ONE Stop: 02/12/19 20:12 Last Admin: 02/12/19 21:33 Dose: 2 mg Documented by: [id number] Miscellaneous Information (Patient's Allergy Info Needs Entered) 1 ea N/A Q30M [facility] Stop: 02/13/19 02:15 Last Admin: 02/12/19 22:13 Dose: 1 ea Documented by: [id number] Nicardipine HCl (Cardene) Confirm Administered Dose 25 mg .ROUTE .STK-MED ONE Stop: 02/12/19 20:12 Last Admin: 02/12/19 21:32 Dose: 25 mg Documented by: [id number] Nitroglycerin/Dextrose (Nitroglycerin/D5w 100 Mcg/Ml 20ml Syringe) Confirm Administered Dose 2,000 mcg .ROUTE .STK-MED ONE Stop: 02/12/19 20:12 Last Admin: 02/12/19 21:33 Dose: 2,000 mcg Documented by: [id number] Perflutren Lipid Microsphere (Definity) 2 ml IV ONCE ONE Stop: 02/13/19 07:00 Last Admin: 02/13/19 07:00 Dose: 2 ml Documented by: [id number] Ticagrelor (Brilinta) Confirm Administered Dose 180 mg PO .STK-MED ONE Stop: 02/12/19 21:42 Last Admin: 02/12/19 23:01 Dose: Not Given Documented by: [id number] Ticagrelor (Brilinta) 90 mg PO BID [facility] Stop: 03/15/19 08:59 Last Admin: 02/13/19 08:14 Dose: 90 mg Documented by: [id number] Medical Decision Making Laboratory Data Result diagrams: 02/13/19 03:59 02/13/19 03:59 Lab Results 02/12/19 02/12/19 02/12/19 Range/Units 20:09 20:27 20:27 WBC 9.17 (4.8-10.8) K/uL RBC 4.01 L (4.7-6.1) M/uL Hgb 12.0 L (14.0-18.0) g/dL POC Hgb (14.0-18.0) g/dl Hct 34.1 L (42-52) % POC Hct (42-52) % MCV 85.0 (80-100) fL MCH 29.9 (25-34) pg MCHC 35.2 (32-36) g/dL RDW Std Deviation 40.9 (36.4-46.3) fL RDW Coeff of Jami 13.2 (11.5-14.5) % Plt Count 220 (130-400) K/uL MPV 8.9 (7.4-10.4) fL Immature Gran % (Auto) 0.3 % Neut % (Auto) 62.8 % Lymph % (Auto) 27.3 % Josephine % (Auto) 7.0 % Eos % (Auto) 2.3 % Baso % (Auto) 0.3 % Reticulocyte % (Auto) (0.5-2.0) % Immature Gran # (Auto) 0.03 H (0.00-0.02) K/uL Neut # (Auto) 5.76 (1.4-6.5) K/uL Lymph # (Auto) 2.50 (1.2-3.4) K/uL Josephine # (Auto) 0.64 H (0.11-0.59) K/uL Eos # (Auto) 0.21 (0-0.5) K/uL Baso # (Auto) 0.03 (0-0.2) K/uL Reticulocyte # (0.02-0.10) 10^6/uL PT (9.0-12.0) Seconds INR (0.9-1.1) APTT (21.0-31.0) Seconds PTT Ratio Activ Coag Time Kaolin 241 H (94-140) SECONDS POC Sodium (135-144) mEq/L Sodium (136-145) mmol/L POC Potassium (3.3-5.0) mEq/L Potassium (3.5-5.1) mmol/L POC Chloride (101-112) mEq/L Chloride (98-107) mmol/L Carbon Dioxide (21-32) mmol/L POC Total CO2 (24-31) mEq/l Anion Gap (3-11) POC Anion Gap (16-25) mmol/L POC BUN (7-18) mg/dl BUN (7-18) mg/dl Creatinine (0.6-1.4) mg/dl POC Creatinine (0.6-1.3) mg/dl Est Cr Clr Drug Dosing ml/min Est GFR ( Amer) Est GFR (Non-Af Amer) BUN/Creatinine Ratio (10-20) Glucose (70-99) mg/dl POC Glucose (70-99) POC Glucose (other) (70-99) mg/dl Estimat Average Glucose mg/dl Hemoglobin A1c (4.5-5.6) % Calcium (8.5-10.1) mg/dl POC Ioniz Calcium Reta (1.12-1.32) mmol/l Magnesium (1.8-2.4) mg/dl Iron (35-175) mcg/dl TIBC (250-450) mcg/dl Transferrin (200-360) mg/dl Ferritin (8-388) ng/ml Total Bilirubin (0.2-1) mg/dl AST (15-37) U/L ALT (12-78) U/L Alkaline Phosphatase (45-117) U/L Total Creatine Kinase Cancelled CK-MB (CK-2) Cancelled CK/CKMB % Calc Cancelled POC Troponin I (0-0.045) ng/ml Troponin I (0-0.045) ng/ml Total Protein (6.4-8.2) gm/dl Albumin (3.4-5.0) gm/dl Globulin (2.5-4.0) gm/dl Albumin/Globulin Ratio (0.9-2) Triglycerides (0-150) mg/dl Cholesterol (0-200) mg/dl LDL Cholesterol, Calc mg/dl VLDL Cholesterol, Calc mg/dl HDL Cholesterol mg/dl Cholesterol/HDL Ratio Lipase (73-393) U/L Vitamin B12 (211-911) pg/ml Folate (>5.38) ng/ml TSH (0.300-4.500) uIu/ml Urine Color Urine Appearance (Clear) Urine pH (4.5-7.5) Ur Specific [place] (1.000-1.030) Urine Protein (Negative) Urine Glucose (UA) (Negative) Urine Ketones (Negative) Urine Blood (Negative) Urine Nitrite (Negative) Urine Bilirubin (Negative) Urine Urobilinogen (Negative) Ur Leukocyte Esterase (Negative) Urine WBC (Auto) (0-5) /hpf Urine RBC (Auto) (0-4) /hpf U Hyaline Cast (Auto) (0-5) /lpf U Epithel Cells (Auto) (0-5) /lpf Urine Bacteria (Auto) (Negative) 02/12/19 02/12/19 02/12/19 Range/Units 20:28 20:28 20:28 WBC (4.8-10.8) K/uL RBC (4.7-6.1) M/uL Hgb (14.0-18.0) g/dL POC Hgb 11.2 L (14.0-18.0) g/dl Hct (42-52) % POC Hct 33 L (42-52) % MCV (80-100) fL MCH (25-34) pg MCHC (32-36) g/dL RDW Std Deviation (36.4-46.3) fL RDW Coeff of Jami (11.5-14.5) % Plt Count (130-400) K/uL MPV (7.4-10.4) fL Immature Gran % (Auto) % Neut % (Auto) % Lymph % (Auto) % Josephine % (Auto) % Eos % (Auto) % Baso % (Auto) % Reticulocyte % (Auto) (0.5-2.0) % Immature Gran # (Auto) (0.00-0.02) K/uL Neut # (Auto) (1.4-6.5) K/uL Lymph # (Auto) (1.2-3.4) K/uL Josephine # (Auto) (0.11-0.59) K/uL Eos # (Auto) (0-0.5) K/uL Baso # (Auto) (0-0.2) K/uL Reticulocyte # (0.02-0.10) 10^6/uL PT (9.0-12.0) Seconds INR (0.9-1.1) APTT (21.0-31.0) Seconds PTT Ratio Activ Coag Time Kaolin (94-140) SECONDS POC Sodium 137 (135-144) mEq/L Sodium 138 (136-145) mmol/L POC Potassium 4.1 (3.3-5.0) mEq/L Potassium 4.0 (3.5-5.1) mmol/L POC Chloride 102 (101-112) mEq/L Chloride 105 (98-107) mmol/L Carbon Dioxide 28 (21-32) mmol/L POC Total CO2 24 (24-31) mEq/l Anion Gap 5.0 (3-11) POC Anion Gap 16.0 (16-25) mmol/L POC BUN 17 (7-18) mg/dl BUN 17 (7-18) mg/dl Creatinine 1.21 (0.6-1.4) mg/dl POC Creatinine 1.1 (0.6-1.3) mg/dl Est Cr Clr Drug Dosing 92.6 ml/min Est GFR ( Amer) 80.4 Est GFR (Non-Af Amer) 69.4 BUN/Creatinine Ratio 13.7 (10-20) Glucose 141 H (70-99) mg/dl POC Glucose (70-99) POC Glucose (other) 144 H (70-99) mg/dl Estimat Average Glucose mg/dl Hemoglobin A1c (4.5-5.6) % Calcium 9.0 (8.5-10.1) mg/dl POC Ioniz Calcium Reta 1.07 L (1.12-1.32) mmol/l Magnesium 2.0 (1.8-2.4) mg/dl Iron (35-175) mcg/dl TIBC (250-450) mcg/dl Transferrin (200-360) mg/dl Ferritin (8-388) ng/ml Total Bilirubin 0.3 (0.2-1) mg/dl AST 28 (15-37) U/L ALT 25 (12-78) U/L Alkaline Phosphatase 82 (45-117) U/L Total Creatine Kinase 205 CK-MB (CK-2) 3.8 H CK/CKMB % Calc 1.9 POC Troponin I 3.81 H (0-0.045) ng/ml Troponin I 4.070 H* (0-0.045) ng/ml Total Protein 7.4 (6.4-8.2) gm/dl Albumin 3.2 L (3.4-5.0) gm/dl Globulin 4.2 H (2.5-4.0) gm/dl Albumin/Globulin Ratio 0.8 L (0.9-2) Triglycerides (0-150) mg/dl Cholesterol (0-200) mg/dl LDL Cholesterol, Calc mg/dl VLDL Cholesterol, Calc mg/dl HDL Cholesterol mg/dl Cholesterol/HDL Ratio Lipase 191 (73-393) U/L Vitamin B12 (211-911) pg/ml Folate (>5.38) ng/ml TSH 1.110 (0.300-4.500) uIu/ml Urine Color Urine Appearance (Clear) Urine pH (4.5-7.5) Ur Specific [place] (1.000-1.030) Urine Protein (Negative) Urine Glucose (UA) (Negative) Urine Ketones (Negative) Urine Blood (Negative) Urine Nitrite (Negative) Urine Bilirubin (Negative) Urine Urobilinogen (Negative) Ur Leukocyte Esterase (Negative) Urine WBC (Auto) (0-5) /hpf Urine RBC (Auto) (0-4) /hpf U Hyaline Cast (Auto) (0-5) /lpf U Epithel Cells (Auto) (0-5) /lpf Urine Bacteria (Auto) (Negative) 02/12/19 02/12/19 02/13/19 Range/Units 20:28 23:36 03:46 WBC (4.8-10.8) K/uL RBC (4.7-6.1) M/uL Hgb (14.0-18.0) g/dL POC Hgb (14.0-18.0) g/dl Hct (42-52) % POC Hct (42-52) % MCV (80-100) fL MCH (25-34) pg MCHC (32-36) g/dL RDW Std Deviation (36.4-46.3) fL RDW Coeff of Jami (11.5-14.5) % Plt Count (130-400) K/uL MPV (7.4-10.4) fL Immature Gran % (Auto) % Neut % (Auto) % Lymph % (Auto) % Josephine % (Auto) % Eos % (Auto) % Baso % (Auto) % Reticulocyte % (Auto) (0.5-2.0) % Immature Gran # (Auto) (0.00-0.02) K/uL Neut # (Auto) (1.4-6.5) K/uL Lymph # (Auto) (1.2-3.4) K/uL Josephine # (Auto) (0.11-0.59) K/uL Eos # (Auto) (0-0.5) K/uL Baso # (Auto) (0-0.2) K/uL Reticulocyte # (0.02-0.10) 10^6/uL PT (9.0-12.0) Seconds INR (0.9-1.1) APTT 26.8 (21.0-31.0) Seconds PTT Ratio 1.0 Activ Coag Time Kaolin (94-140) SECONDS POC Sodium (135-144) mEq/L Sodium (136-145) mmol/L POC Potassium (3.3-5.0) mEq/L Potassium (3.5-5.1) mmol/L POC Chloride (101-112) mEq/L Chloride (98-107) mmol/L Carbon Dioxide (21-32) mmol/L POC Total CO2 (24-31) mEq/l Anion Gap (3-11) POC Anion Gap (16-25) mmol/L POC BUN (7-18) mg/dl BUN (7-18) mg/dl Creatinine (0.6-1.4) mg/dl POC Creatinine (0.6-1.3) mg/dl Est Cr Clr Drug Dosing ml/min Est GFR ( Amer) Est GFR (Non-Af Amer) BUN/Creatinine Ratio (10-20) Glucose (70-99) mg/dl POC Glucose 102 H (70-99) POC Glucose (other) (70-99) mg/dl Estimat Average Glucose mg/dl Hemoglobin A1c (4.5-5.6) % Calcium (8.5-10.1) mg/dl POC Ioniz Calcium Reta (1.12-1.32) mmol/l Magnesium (1.8-2.4) mg/dl Iron (35-175) mcg/dl TIBC (250-450) mcg/dl Transferrin (200-360) mg/dl Ferritin (8-388) ng/ml Total Bilirubin (0.2-1) mg/dl AST (15-37) U/L ALT (12-78) U/L Alkaline Phosphatase (45-117) U/L Total Creatine Kinase CK-MB (CK-2) CK/CKMB % Calc POC Troponin I (0-0.045) ng/ml Troponin I (0-0.045) ng/ml Total Protein (6.4-8.2) gm/dl Albumin (3.4-5.0) gm/dl Globulin (2.5-4.0) gm/dl Albumin/Globulin Ratio (0.9-2) Triglycerides (0-150) mg/dl Cholesterol (0-200) mg/dl LDL Cholesterol, Calc mg/dl VLDL Cholesterol, Calc mg/dl HDL Cholesterol mg/dl Cholesterol/HDL Ratio Lipase (73-393) U/L Vitamin B12 (211-911) pg/ml Folate (>5.38) ng/ml TSH (0.300-4.500) uIu/ml Urine Color Yellow Urine Appearance Clear (Clear) Urine pH 7.5 (4.5-7.5) Ur Specific [place] 1.019 (1.000-1.030) Urine Protein Negative (Negative) Urine Glucose (UA) Negative (Negative) Urine Ketones Negative (Negative) Urine Blood Trace H (Negative) Urine Nitrite Negative (Negative) Urine Bilirubin Negative (Negative) Urine Urobilinogen Negative (Negative) Ur Leukocyte Esterase Negative (Negative) Urine WBC (Auto) 0 (0-5) /hpf Urine RBC (Auto) 0-4 (0-4) /hpf U Hyaline Cast (Auto) 1-5 (0-5) /lpf U Epithel Cells (Auto) 0-5 (0-5) /lpf Urine Bacteria (Auto) Negative (Negative) 02/13/19 02/13/19 02/13/19 Range/Units 03:59 03:59 03:59 WBC 7.77 (4.8-10.8) K/uL RBC 4.03 L (4.7-6.1) M/uL Hgb 11.7 L (14.0-18.0) g/dL POC Hgb (14.0-18.0) g/dl Hct 34.2 L (42-52) % POC Hct (42-52) % MCV 84.9 (80-100) fL MCH 29.0 (25-34) pg MCHC 34.2 (32-36) g/dL RDW Std Deviation 40.3 (36.4-46.3) fL RDW Coeff of Jami 13.2 (11.5-14.5) % Plt Count 197 (130-400) K/uL MPV 8.7 (7.4-10.4) fL Immature Gran % (Auto) 0.1 % Neut % (Auto) 67.0 % Lymph % (Auto) 24.2 % Josephine % (Auto) 6.0 % Eos % (Auto) 2.6 % Baso % (Auto) 0.1 % Reticulocyte % (Auto) 1.2 (0.5-2.0) % Immature Gran # (Auto) 0.01 (0.00-0.02) K/uL Neut # (Auto) 5.20 (1.4-6.5) K/uL Lymph # (Auto) 1.88 (1.2-3.4) K/uL Josephine # (Auto) 0.47 (0.11-0.59) K/uL Eos # (Auto) 0.20 (0-0.5) K/uL Baso # (Auto) 0.01 (0-0.2) K/uL Reticulocyte # 0.05 (0.02-0.10) 10^6/uL PT (9.0-12.0) Seconds INR (0.9-1.1) APTT (21.0-31.0) Seconds PTT Ratio Activ Coag Time Kaolin (94-140) SECONDS POC Sodium (135-144) mEq/L Sodium 138 (136-145) mmol/L POC Potassium (3.3-5.0) mEq/L Potassium 4.1 (3.5-5.1) mmol/L POC Chloride (101-112) mEq/L Chloride 106 (98-107) mmol/L Carbon Dioxide 30 (21-32) mmol/L POC Total CO2 (24-31) mEq/l Anion Gap 2.0 L (3-11) POC Anion Gap (16-25) mmol/L POC BUN (7-18) mg/dl BUN 14 (7-18) mg/dl Creatinine 1.25 (0.6-1.4) mg/dl POC Creatinine (0.6-1.3) mg/dl Est Cr Clr Drug Dosing 89.6 ml/min Est GFR ( Amer) 77.3 Est GFR (Non-Af Amer) 66.7 BUN/Creatinine Ratio 11.4 (10-20) Glucose 207 H (70-99) mg/dl POC Glucose (70-99) POC Glucose (other) (70-99) mg/dl Estimat Average Glucose 295 mg/dl Hemoglobin A1c 11.9 H (4.5-5.6) % Calcium 8.4 L (8.5-10.1) mg/dl POC Ioniz Calcium Reta (1.12-1.32) mmol/l Magnesium (1.8-2.4) mg/dl Iron 39 (35-175) mcg/dl TIBC 272 (250-450) mcg/dl Transferrin 221 (200-360) mg/dl Ferritin 371.4 (8-388) ng/ml Total Bilirubin (0.2-1) mg/dl AST (15-37) U/L ALT (12-78) U/L Alkaline Phosphatase (45-117) U/L Total Creatine Kinase CK-MB (CK-2) CK/CKMB % Calc POC Troponin I (0-0.045) ng/ml Troponin I 4.170 H* (0-0.045) ng/ml Total Protein (6.4-8.2) gm/dl Albumin (3.4-5.0) gm/dl Globulin (2.5-4.0) gm/dl Albumin/Globulin Ratio (0.9-2) Triglycerides 194 H (0-150) mg/dl Cholesterol 96 (0-200) mg/dl LDL Cholesterol, Calc 29 mg/dl VLDL Cholesterol, Calc 39 mg/dl HDL Cholesterol 28 mg/dl Cholesterol/HDL Ratio 3 Lipase (73-393) U/L Vitamin B12 (211-911) pg/ml Folate (>5.38) ng/ml TSH (0.300-4.500) uIu/ml Urine Color Urine Appearance (Clear) Urine pH (4.5-7.5) Ur Specific [place] (1.000-1.030) Urine Protein (Negative) Urine Glucose (UA) (Negative) Urine Ketones (Negative) Urine Blood (Negative) Urine Nitrite (Negative) Urine Bilirubin (Negative) Urine Urobilinogen (Negative) Ur Leukocyte Esterase (Negative) Urine WBC (Auto) (0-5) /hpf Urine RBC (Auto) (0-4) /hpf U Hyaline Cast (Auto) (0-5) /lpf U Epithel Cells (Auto) (0-5) /lpf Urine Bacteria (Auto) (Negative) 02/13/19 02/13/19 02/13/19 Range/Units 03:59 03:59 03:59 WBC (4.8-10.8) K/uL RBC (4.7-6.1) M/uL Hgb (14.0-18.0) g/dL POC Hgb (14.0-18.0) g/dl Hct (42-52) % POC Hct (42-52) % MCV (80-100) fL MCH (25-34) pg MCHC (32-36) g/dL RDW Std Deviation (36.4-46.3) fL RDW Coeff of Jami (11.5-14.5) % Plt Count (130-400) K/uL MPV (7.4-10.4) fL Immature Gran % (Auto) % Neut % (Auto) % Lymph % (Auto) % Josephine % (Auto) % Eos % (Auto) % Baso % (Auto) % Reticulocyte % (Auto) (0.5-2.0) % Immature Gran # (Auto) (0.00-0.02) K/uL Neut # (Auto) (1.4-6.5) K/uL Lymph # (Auto) (1.2-3.4) K/uL Josephine # (Auto) (0.11-0.59) K/uL Eos # (Auto) (0-0.5) K/uL Baso # (Auto) (0-0.2) K/uL Reticulocyte # (0.02-0.10) 10^6/uL PT 10.5 (9.0-12.0) Seconds INR 1.0 (0.9-1.1) APTT (21.0-31.0) Seconds PTT Ratio Activ Coag Time Kaolin (94-140) SECONDS POC Sodium (135-144) mEq/L Sodium (136-145) mmol/L POC Potassium (3.3-5.0) mEq/L Potassium (3.5-5.1) mmol/L POC Chloride (101-112) mEq/L Chloride (98-107) mmol/L Carbon Dioxide (21-32) mmol/L POC Total CO2 (24-31) mEq/l Anion Gap (3-11) POC Anion Gap (16-25) mmol/L POC BUN (7-18) mg/dl BUN (7-18) mg/dl Creatinine (0.6-1.4) mg/dl POC Creatinine (0.6-1.3) mg/dl Est Cr Clr Drug Dosing ml/min Est GFR ( Amer) Est GFR (Non-Af Amer) BUN/Creatinine Ratio (10-20) Glucose (70-99) mg/dl POC Glucose (70-99) POC Glucose (other) (70-99) mg/dl Estimat Average Glucose mg/dl Hemoglobin A1c (4.5-5.6) % Calcium (8.5-10.1) mg/dl POC Ioniz Calcium Reta (1.12-1.32) mmol/l Magnesium (1.8-2.4) mg/dl Iron (35-175) mcg/dl TIBC (250-450) mcg/dl Transferrin (200-360) mg/dl Ferritin (8-388) ng/ml Total Bilirubin (0.2-1) mg/dl AST (15-37) U/L ALT (12-78) U/L Alkaline Phosphatase (45-117) U/L Total Creatine Kinase CK-MB (CK-2) CK/CKMB % Calc POC Troponin I (0-0.045) ng/ml Troponin I (0-0.045) ng/ml Total Protein (6.4-8.2) gm/dl Albumin 2.8 L (3.4-5.0) gm/dl Globulin (2.5-4.0) gm/dl Albumin/Globulin Ratio (0.9-2) Triglycerides (0-150) mg/dl Cholesterol (0-200) mg/dl LDL Cholesterol, Calc mg/dl VLDL Cholesterol, Calc mg/dl HDL Cholesterol mg/dl Cholesterol/HDL Ratio Lipase (73-393) U/L Vitamin B12 601 (211-911) pg/ml Folate 21.05 (>5.38) ng/ml TSH (0.300-4.500) uIu/ml Urine Color Urine Appearance (Clear) Urine pH (4.5-7.5) Ur Specific [place] (1.000-1.030) Urine Protein (Negative) Urine Glucose (UA) (Negative) Urine Ketones (Negative) Urine Blood (Negative) Urine Nitrite (Negative) Urine Bilirubin (Negative) Urine Urobilinogen (Negative) Ur Leukocyte Esterase (Negative) Urine WBC (Auto) (0-5) /hpf Urine RBC (Auto) (0-4) /hpf U Hyaline Cast (Auto) (0-5) /lpf U Epithel Cells (Auto) (0-5) /lpf Urine Bacteria (Auto) (Negative) 02/13/19 02/13/19 02/13/19 Range/Units 06:03 07:31 09:45 WBC (4.8-10.8) K/uL RBC (4.7-6.1) M/uL Hgb (14.0-18.0) g/dL POC Hgb (14.0-18.0) g/dl Hct (42-52) % POC Hct (42-52) % MCV (80-100) fL MCH (25-34) pg MCHC (32-36) g/dL RDW Std Deviation (36.4-46.3) fL RDW Coeff of Jami (11.5-14.5) % Plt Count (130-400) K/uL MPV (7.4-10.4) fL Immature Gran % (Auto) % Neut % (Auto) % Lymph % (Auto) % Josephine % (Auto) % Eos % (Auto) % Baso % (Auto) % Reticulocyte % (Auto) (0.5-2.0) % Immature Gran # (Auto) (0.00-0.02) K/uL Neut # (Auto) (1.4-6.5) K/uL Lymph # (Auto) (1.2-3.4) K/uL Josephine # (Auto) (0.11-0.59) K/uL Eos # (Auto) (0-0.5) K/uL Baso # (Auto) (0-0.2) K/uL Reticulocyte # (0.02-0.10) 10^6/uL PT (9.0-12.0) Seconds INR (0.9-1.1) APTT (21.0-31.0) Seconds PTT Ratio Activ Coag Time Kaolin (94-140) SECONDS POC Sodium (135-144) mEq/L Sodium (136-145) mmol/L POC Potassium (3.3-5.0) mEq/L Potassium (3.5-5.1) mmol/L POC Chloride (101-112) mEq/L Chloride (98-107) mmol/L Carbon Dioxide (21-32) mmol/L POC Total CO2 (24-31) mEq/l Anion Gap (3-11) POC Anion Gap (16-25) mmol/L POC BUN (7-18) mg/dl BUN (7-18) mg/dl Creatinine (0.6-1.4) mg/dl POC Creatinine (0.6-1.3) mg/dl Est Cr Clr Drug Dosing ml/min Est GFR ( Amer) Est GFR (Non-Af Amer) BUN/Creatinine Ratio (10-20) Glucose (70-99) mg/dl POC Glucose 197 H 176 H (70-99) POC Glucose (other) (70-99) mg/dl Estimat Average Glucose mg/dl Hemoglobin A1c (4.5-5.6) % Calcium (8.5-10.1) mg/dl POC Ioniz Calcium Reta (1.12-1.32) mmol/l Magnesium (1.8-2.4) mg/dl Iron (35-175) mcg/dl TIBC (250-450) mcg/dl Transferrin (200-360) mg/dl Ferritin (8-388) ng/ml Total Bilirubin (0.2-1) mg/dl AST (15-37) U/L ALT (12-78) U/L Alkaline Phosphatase (45-117) U/L Total Creatine Kinase CK-MB (CK-2) CK/CKMB % Calc POC Troponin I (0-0.045) ng/ml Troponin I 4.250 H* (0-0.045) ng/ml Total Protein (6.4-8.2) gm/dl Albumin (3.4-5.0) gm/dl Globulin (2.5-4.0) gm/dl Albumin/Globulin Ratio (0.9-2) Triglycerides (0-150) mg/dl Cholesterol (0-200) mg/dl LDL Cholesterol, Calc mg/dl VLDL Cholesterol, Calc mg/dl HDL Cholesterol mg/dl Cholesterol/HDL Ratio Lipase (73-393) U/L Vitamin B12 (211-911) pg/ml Folate (>5.38) ng/ml TSH (0.300-4.500) uIu/ml Urine Color Urine Appearance (Clear) Urine pH (4.5-7.5) Ur Specific [place] (1.000-1.030) Urine Protein (Negative) Urine Glucose (UA) (Negative) Urine Ketones (Negative) Urine Blood (Negative) Urine Nitrite (Negative) Urine Bilirubin (Negative) Urine Urobilinogen (Negative) Ur Leukocyte Esterase (Negative) Urine WBC (Auto) (0-5) /hpf Urine RBC (Auto) (0-4) /hpf U Hyaline Cast (Auto) (0-5) /lpf U Epithel Cells (Auto) (0-5) /lpf Urine Bacteria (Auto) (Negative) 02/13/19 02/13/19 Range/Units 11:19 16:32 WBC (4.8-10.8) K/uL RBC (4.7-6.1) M/uL Hgb (14.0-18.0) g/dL POC Hgb (14.0-18.0) g/dl Hct (42-52) % POC Hct (42-52) % MCV (80-100) fL MCH (25-34) pg MCHC (32-36) g/dL RDW Std Deviation (36.4-46.3) fL RDW Coeff of Jami (11.5-14.5) % Plt Count (130-400) K/uL MPV (7.4-10.4) fL Immature Gran % (Auto) % Neut % (Auto) % Lymph % (Auto) % Josephine % (Auto) % Eos % (Auto) % Baso % (Auto) % Reticulocyte % (Auto) (0.5-2.0) % Immature Gran # (Auto) (0.00-0.02) K/uL Neut # (Auto) (1.4-6.5) K/uL Lymph # (Auto) (1.2-3.4) K/uL Josephine # (Auto) (0.11-0.59) K/uL Eos # (Auto) (0-0.5) K/uL Baso # (Auto) (0-0.2) K/uL Reticulocyte # (0.02-0.10) 10^6/uL PT (9.0-12.0) Seconds INR (0.9-1.1) APTT (21.0-31.0) Seconds PTT Ratio Activ Coag Time Kaolin (94-140) SECONDS POC Sodium (135-144) mEq/L Sodium (136-145) mmol/L POC Potassium (3.3-5.0) mEq/L Potassium (3.5-5.1) mmol/L POC Chloride (101-112) mEq/L Chloride (98-107) mmol/L Carbon Dioxide (21-32) mmol/L POC Total CO2 (24-31) mEq/l Anion Gap (3-11) POC Anion Gap (16-25) mmol/L POC BUN (7-18) mg/dl BUN (7-18) mg/dl Creatinine (0.6-1.4) mg/dl POC Creatinine (0.6-1.3) mg/dl Est Cr Clr Drug Dosing ml/min Est GFR ( Amer) Est GFR (Non-Af Amer) BUN/Creatinine Ratio (10-20) Glucose (70-99) mg/dl POC Glucose 152 H 147 H (70-99) POC Glucose (other) (70-99) mg/dl Estimat Average Glucose mg/dl Hemoglobin A1c (4.5-5.6) % Calcium (8.5-10.1) mg/dl POC Ioniz Calcium Reta (1.12-1.32) mmol/l Magnesium (1.8-2.4) mg/dl Iron (35-175) mcg/dl TIBC (250-450) mcg/dl Transferrin (200-360) mg/dl Ferritin (8-388) ng/ml Total Bilirubin (0.2-1) mg/dl AST (15-37) U/L ALT (12-78) U/L Alkaline Phosphatase (45-117) U/L Total Creatine Kinase CK-MB (CK-2) CK/CKMB % Calc POC Troponin I (0-0.045) ng/ml Troponin I (0-0.045) ng/ml Total Protein (6.4-8.2) gm/dl Albumin (3.4-5.0) gm/dl Globulin (2.5-4.0) gm/dl Albumin/Globulin Ratio (0.9-2) Triglycerides (0-150) mg/dl Cholesterol (0-200) mg/dl LDL Cholesterol, Calc mg/dl VLDL Cholesterol, Calc mg/dl HDL Cholesterol mg/dl Cholesterol/HDL Ratio Lipase (73-393) U/L Vitamin B12 (211-911) pg/ml Folate (>5.38) ng/ml TSH (0.300-4.500) uIu/ml Urine Color Urine Appearance (Clear) Urine pH (4.5-7.5) Ur Specific [place] (1.000-1.030) Urine Protein (Negative) Urine Glucose (UA) (Negative) Urine Ketones (Negative) Urine Blood (Negative) Urine Nitrite (Negative) Urine Bilirubin (Negative) Urine Urobilinogen (Negative) Ur Leukocyte Esterase (Negative) Urine WBC (Auto) (0-5) /hpf Urine RBC (Auto) (0-4) /hpf U Hyaline Cast (Auto) (0-5) /lpf U Epithel Cells (Auto) (0-5) /lpf Urine Bacteria (Auto) (Negative) Imaging Data Radiologist's Impression: [facility], [place] [phone] XRay Report Patient: AMITA LYCNH Date: 02/12/19 MR#: [id number]: [address] Acct ID:[id number]: Date: [address] Zip: [place] [id number] Age: 48Location: ED Sex: M Room/Bed: Att Phy: Diagnosis: heart alert Natalie Phy: Josesito Bergman Bethany ParadaShantelle, MDService Date: 02/12/19 [facility] Phy: Interpreting Phy: Ezra Cisse MD Admit Phy: Ordering Phy: Nic Horn MD cc: ~ XR chest 1V portable CLINICAL HISTORY: Chest Pain dyspnea COMPARISON STUDY: No previous studies for comparison. FINDINGS: Mild cardiomegaly. Minimal infiltrative change right base possibly combined with a small right effusion. Lungs otherwise appear clear. Slight prominence of pulmonary vasculature. IMPRESSION: Atelectasis versus minimal infiltrate right base. Pulmonary vasc ular congestion. The above report was generated using voice recognition software. It may contain grammatical, syntax or spelling errors. Electronically signed by: Ezra Cisse M.D. 02/12/2019 8:33 PM Dictated: 02/12/192031 Transcribed: 02/12/192031 Prescription Drug Monitoring [place] Drug [place] reviewed and no issues identified Blood Pressure Blood Pressure Findings: Elevated blood pressure Blood Pressure Disposition: elevated BP felt to be situational MDM Narrative This is a 48-year-old male who presents emergency department complaining of chest pain. Due to the patient's EKG a heart alert was immediately initiated. He was started on normal saline bolus and given Zofran. He was taken to the [facility] by the [facility] staff. His troponin was found to be grossly elevated. His creatinine is also slightly elevated as the patient only has one kidney. Impression & Plan ST elevation myocardial infarction (STEMI) Critical Care Time I have personally spent greater than 30 minutes of critical care time in the direct management of this patient. This includes bedside care, interpretation of diagnostic studies, and testing, discussion with consultants, patient, and family members, and other required patient management activities. This 30 minutes is in excess of all separately billable procedures. Discharge Plan Visit Data *Final* Discharge Date/Time: 02/12/19 20:35 Chief Complaint: Chest Pain Stated Complaint: heart alert ED Provider: Nic Horn Discharge Problem: ST elevation myocardial infarction (STEMI) Patient Disposition: Admitted As Inpatient Discharge Instructions Interventions: ED Discharge Assessment Last Done: 02/12/19 20:35
--- OUTSIDE RECORDS SUMMARY | 2019-02-16 21:47 | External Medical Summary | Continuity of Care Document ---
:1970 Author Name Brennen Ro, Provider Address Unavailable Unavailable , Care Team Providers Name Role Phone Umair Elder [email or web address]. ELAINA Gallagher Unavailable Unavailable Problems Active medical history not documented Allergies and Adverse Reactions Allergy history not documented Medications Medications not documented Procedures Procedures not documented Immunizations Immunizations not documented Plan of Treatment Planned Encounters Appointment; Umair Elder M.D. Start: 26-Feb-2019 15:3 0 Request Planned Observations Planned Goals not documented Results No Known Results Results not documented Encounters Appointment; Umair Elder M.D. 26-Feb-2019 15:30 Encounter Diagnosis: Problem not documented
--- OUTSIDE RECORDS SUMMARY | 2019-02-16 21:47 | External Medical Summary | Continuity of Care Document ---
:1970 Author Name Brennen Ro, Provider Address Unavailable Unavailable , Care Team Providers Name Role Phone Umair Elder [email or web address]. ELAINA Gallagher Unavailable Unavailable Problems Active medical [...]
--- NOTE | 2019-02-17 07:54 | Coding Query ---
CODING QUERY To promote full compliance with coding requirements relating to patient care, provider participation is requested in all cases of training and development head uncertainty. Please assist us with the question(s) below: Coding Question(s): The H&P documents, " acute/subacute CHF secondary to ischemic cardiomyopathy", but there is no documentation of treatment or any further documentation in the record. Please clarify below, in your clinical opinion, regarding the documentation of acute/subacute CHF. (X) Ischemic Cardiomyopathy---Reduced EF secondary to ACS. ( ) Acute/subacute CHF was ruled out and/or not treated during this admission ( ) Acute/subacute CHF was treated during this admission. Please specify below, to determine the type of acute/subacute CHF: ( ) Diastolic CHF ( ) Systolic CHF ( ) Diastolic and Systolic CHF ( ) Unknown type of CHF Physician's Response(s): Thank you Nancy Martin Principal Diagnosis: "that condition established after study, to be chiefly responsible for occasioning the admission of the patient to the hospital for care." Co-Existing Principal Diagnosis: "when two or more diagnoses equally meet the criteria for principal diagnosis as determined by the circumstances of admission, diagnostic work up, and/or therapy provided, and the Alphabetic Index, Tabular List, or another coding guideline does not provide sequencing direction, any one of the diagnoses may be sequenced first." "When the physician has documented what appears to be a current diagnosis in the body of the record, but has not included the diagnosis in the final diagnostic statement, the physician should be asked whether the diagnosis should be added." (Source [facility]oding [facility] 2 QTR90. p3-4) [facility]
== END 2019-02-13 18:08 | disposition home or self-care (01) | DRG 247 ==
LOC: ED 20:13 → CC 20:35 → SUATTDRO 20:37 → 2S 20:37
DX: E78.5 Hyperlipidemia, unspecified; I21.19 ST elevation (STEMI) myocardial infarction involving other coronary artery of inferior wall; I25.10 Atherosclerotic heart disease of native coronary artery without angina pectoris; Z51.81 Encounter for therapeutic drug level monitoring; E11.9 Type 2 diabetes mellitus without complications; I10 Essential (primary) hypertension; N28.9 Disorder of kidney and ureter, unspecified; Z79.899 Other long term (current) drug therapy; I25.5 Ischemic cardiomyopathy; Z87.891 Personal history of nicotine dependence; Z79.4 Long term (current) use of insulin; Z85.528 Personal history of other malignant neoplasm of kidney; D64.9 Anemia, unspecified; Z79.82 Long term (current) use of aspirin; Z90.5 Acquired absence of kidney; Z83.3 Family history of diabetes mellitus